=== PATIENT | female | born 1985 | race Caucasian/White ===

== ENCOUNTER 2017-06-20 02:02 | Inpatient (IN) | payer BC ==
[2017-06-20 02:55] LABS: Hematocrit 38 % (35-47); Hemoglobin 13.1 g/dl (12.0-16.0); Mean Corpuscular HGB Conc 34 g/dl (31-36); Mean Corpuscular Hemoglobin 31 pg (27-31); Mean Corpuscular Volume 91 fL (80-97); Mean Platelet Volume 8 um3 (7.4-10.4); Platelet Count 275 10^3/ul (150-450); Red Blood Count 4.22 10^6/ul (4.0-5.4); Red Cell Distribution Width 14 % (10.5-15); White Blood Count 13.9 10^3/ul (3.5-10.8)
[2017-06-20 03:00] LABS: ABS Basophils 0.1 10^3/ul (0-0.2); ABS Eosinophils 0.1 10^3/ul (0-0.6); ABS Lymphocytes 3.2 10^3/ul (1.0-4.8); ABS Neutrophils 9.5 10^3/ul (1.5-7.7); ABS Nucleated RBC 0 10^3/ul; Eosinophil % 0.5 % (0-6); Lymphocyte % 22.9 % (25-47); Nucleated Red Blood Cells % 0.1
[2017-06-20] MEDS ORDERED: Witch Hazel PAD* JAR TOPICAL PRN (04:40)
[2017-06-20] MEDS ORDERED: Acetaminophen TAB* 325 MG PO PRN (04:40)
[2017-06-20] MEDS ORDERED: Dibucaine 1% 28.35 GM TUBE PR PRN (04:40)
[2017-06-20] MEDS ORDERED: Glycerin ADULT SUPP PR PRN (04:40)
[2017-06-20] MEDS ORDERED: Ammonia Inhalant* 1 EA AMP ONE (05:44)
[2017-06-20] MEDS: Ibuprofen TAB* 600 MG PO PRN ×2 (08:19→16:46)
[2017-06-20] MEDS: Docusate CAP* 100 MG PO SCH ×3 (08:19→20:10)
[2017-06-20] MEDS ORDERED: Simethicone TAB* 80 MG TAB.CHEW PO SCH (08:30)
[2017-06-21 06:51] LABS: ABS Basophils 0.1 10^3/ul (0-0.2); ABS Eosinophils 0.1 10^3/ul (0-0.6); ABS Lymphocytes 2.6 10^3/ul (1.0-4.8); ABS Monocytes 0.9 10^3/ul (0-0.8); ABS Neutrophils 9.9 10^3/ul (1.5-7.7); ABS Nucleated RBC 0 10^3/ul; Eosinophil % 0.9 % (0-6); Hematocrit 37 % (35-47); Hemoglobin 12.5 g/dl (12.0-16.0); Lymphocyte % 18.8 % (25-47); Mean Corpuscular HGB Conc 34 g/dl (31-36); Mean Corpuscular Hemoglobin 31 pg (27-31); Mean Corpuscular Volume 92 fL (80-97); Mean Platelet Volume 7 um3 (7.4-10.4); Nucleated Red Blood Cells % 0; Platelet Count 245 10^3/ul (150-450); Red Blood Count 3.98 10^6/ul (4.0-5.4); Red Cell Distribution Width 15 % (10.5-15); White Blood Count 13.6 10^3/ul (3.5-10.8)
[2017-06-21] MEDS: Docusate CAP* 100 MG PO SCH ×3 (08:11→20:45)
[2017-06-21] MEDS ORDERED: Ferrous Gluconate TAB* 324 MG TAB PO SCH (09:00)
[2017-06-21] MEDS: Ibuprofen TAB* 600 MG PO PRN (12:54)
[2017-06-22] MEDS: Ibuprofen TAB* 600 MG PO PRN (05:27)
[2017-06-22 08:02] VITALS: BP 125/79
--- NOTE | 2017-06-22 09:51 | PTEDU ---
Patient Name: SHARMAINE GEE SHARMAINE GEE selected video: Never Ever Shake a Baby to view on 06/22/2017 at 9:50:49 AM from [facility] [id number]
== END 2017-06-22 12:20 | disposition home or self-care (01) | DRG 560 ==
LOC: MCHOBOUT 02:02 → MCHOB 02:37
PROVIDERS: ADMIT Midwife; ATTEND Midwife
PROC: 10E0XZZ Delivery of Products of Conception, External Approach (ICD-10-PCS; principal; 2017-06-20)
PROC: 0W8NXZZ Division of Female Perineum, External Approach (ICD-10-PCS; 2017-06-20)
DX: O69.81X0 Labor and delivery complicated by cord around neck, without compression, not applicable or unspecified (principal); Z37.0 Single live birth; Z3A.39 39 weeks gestation of pregnancy
CPT/HCPCS: 36415; 85025; 86850; 86900; 86901; A9270-GY